=== PATIENT | female | born 1975 | race Caucasian/White ===

== ENCOUNTER 2016-05-11 07:15 | Emergency (ER) | payer OTHER ==
[2016-05-11] MEDS ORDERED: TDAP ADULT 0.5 ML VIAL (BOOSTRIX) IM ONE (07:39)
--- NOTE | 2016-05-11 07:39 | UCPHY ---
H & P Time Seen by Provider: 05/11/16 07:20 Patient Type: New HPI/ROS: HPI Right hand laceration. 41-year-old female by private vehicle from work. Patient was at work. She had a sharp piece of metal fall from a shelf and struck her in the web space of the right hand between the 2nd and 3rd digits. She sustained a laceration to this area. No numbness or weakness distally. She cannot remember the last time she had a tetanus shot. She is right-hand dominant. ROS: Constitutional: No fever, no chills. No weakness. Musculoskeletal: No back pain. No neck pain. No other extremity pain except as above. Skin: No rashes. As above. Neurological: No focal weakness or altered sensation. Past medical history: Hepatitis-C. Appendectomy. 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 Physical Exam: General Appearance: Alert, no distress. This patient is responding to questions appropriately and in full sentences. This patient appears well- hydrated and well-nourished. Eyes: Pupils equal and round no pallor or injection. No lid edema, erythema or injection. Right hand exam: Significant for a elliptical shaped full-thickness laceration measuring approximately 2 cm webspace between the 2nd and 3rd digit. The flexor tendon profundus and flexor tendon superficialis function is intact. There is no evidence of foreign body on gross exploration. No joint involvement. No exposed tendon or bony elements. All digits of the right hand are neurovascularly intact. Please see wound care note for further details. Neurological: Motor sensory function is grossly intact. Cranial nerves are normal. Gait is normal. Skin: Warm and dry, no rashes. Extremities are symmetrical. All joints range without pain or impingement. Psychiatric: No agitation. No depression. Database: EKG: Imaging: Procedures: Procedure: Laceration repair. Verbal consent was obtained from the patient. The 2 cm laceration on the webspace, right hand, between 2nd and 3rd digits was anesthetized in the usual fashion. The wound was irrigated, draped and explored to its base with a gloved finger. There were no deep structures involved. No tendon injury was identified. No foreign body was found on gross exploration The wound was repaired with 6, 4.0 Prolene sutures placed in interrupted fashion. The wound repair was tolerated well and with no complications. The procedure was performed by myself. Emergency department course: After suture repair is noted above patient received a tetanus vaccination. Wound care was discussed with the patient and her paper products supervisor. Suture removal was reviewed. Return to Urgent Care precautions discussed. Follow-up reviewed. All of their questions were answered. Patient was discharged in good condition with her paper products supervisor. Differential Diagnosis: The differential diagnosis on this patient includes but is not limited to laceration to right hand. Tendon injury, bony injury, retained foreign body, significant neurovascular injury unlikely. This represents a partial list of diagnoses considered. These considerations are based on history, physical exam , past history, reassessment and diagnostic testing. Constitutional: Initial Vital Signs Temperature (C) 36.6 C 05/11/16 07:35 Heart Rate 73 05/11/16 07:35 Respiratory Rate 18 05/11/16 07:35 Blood Pressure 136/81 H 05/11/16 07:35 O2 Sat (%) 97 05/11/16 07:35 O2 Delivery Mode Room Air Allergies/Adverse Reactions: No Known Allergies Allergy (Unverified 05/11/16 07:32) Home Medications: Medication Instructions Recorded Stomach Relief 05/11/16 MDM/Departure - MDM Medications Given: Discontinued Medications Diphtheria/Tetanus/Acell Pertussis (Boostrix) 0.5 ml IM .ONCE ONE Stop: 05/11/16 07:40 Last Admin: 05/11/16 07:45 Dose: 0.5 ml - Depart Disposition: Home, Routine, Self-Care Clinical Impression: Laceration of right hand Condition: Good Instructions: Laceration (ED), Care For Your Stitches (ED) Additional Instructions: Read and follow provided instructions. Sutures are to be removed in 10-12 days. Follow-up with your workmen's comp physician in 2-3 days for re-evaluation. Ibuprofen dosin mg every 6 hours with meals for the next 3 days only. Return to the emergency department for signs of infection as noted in discharge instructions, swelling, numbness or weakness or other serious concerns. Referrals: NONE *PRIMARY CARE P,. [Primary Care Provider] - As per Instructions - PQRS PQRS Measurement: Not applicable.
[2016-05-11 08:20] VITALS: RESP 18
[2016-05-11 08:40] VITALS: BP 120/73; PULSE 60; TEMP 98.8; O2SAT 98
== END 2016-05-11 08:30 | disposition home or self-care (01) ==
LOC: CED 07:15
PROC: 0HQFXZZ Repair Right Hand Skin, External Approach (ICD-10-PCS; principal; 2016-05-11)
DX: S61.411A Laceration without foreign body of right hand, initial encounter (principal); W20.8XXA Other cause of strike by thrown, projected or falling object, initial encounter
CPT/HCPCS: 12001-PO; 80307-PO; 99203-PO; G0463-PO